=== PATIENT | female | born 1950 | race Caucasian/White ===

== ENCOUNTER 2016-11-30 09:30 | Emergency (ER) | payer MEDICARE, OTHER | END 2016-11-30 12:58 | disposition home or self-care (01) | LOC: ER 09:30 | DX: S82.301G Unspecified fracture of lower end of right tibia, subsequent encounter for closed fracture with delayed healing (principal); S82.831K Other fracture of upper and lower end of right fibula, subsequent encounter for closed fracture with nonunion; Z79.899 Other long term (current) drug therapy ==